=== PATIENT | female | born 1965 | race Caucasian/White ===

== ENCOUNTER 2023-11-19 13:01 | Day surgery (SDC) | payer BC ==
[2023-11-19 13:59] VITALS: RESP 16; TEMP 98.2
--- NOTE | 2023-11-19 14:10 | US ---
EXAMINATION TYPE: US FNA thyroid first lesion DATE OF EXAM: 11/19/2023 2:05 PM CLINICAL INDICATION:Female, 58 years old with history of E04.1 thyroid nodule; , thyroid nodule. COMPARISON: None ATTENDING: Dr. Prashant Graff PROCEDURE: Informed consent was obtained. The risks and benefits of the procedure were discussed with the patien t. The site was marked. Timeout procedure was performed Ultrasound imaging of the thyroid demonstrates right thyroid nodule The patient was prepped, draped in the usual sterile fashion, and locally anesthetized with 1% lidoca ine. Five fine needle aspiration were then performed with a 25 gauge needle. Samples were sent to [facility] pathology department for further analysis. Patient tolerated the procedure without incident and wa s sent home in stable condition. IMPRESSION: Successful ultrasound guided fine needle aspiration.
[2023-11-19 14:53] VITALS: BP 153/79; PULSE 82
== END 2023-11-19 14:15 | disposition home or self-care (01) ==
LOC: RADPROMAIN 13:01
PROVIDERS: ATTEND Family Medicine
DX: E04.1 Nontoxic single thyroid nodule (principal)
CPT/HCPCS: 10005; 88173; 88305